=== PATIENT | female | born 1940 | race Caucasian/White ===

== ENCOUNTER 2022-10-29 14:31 | Inpatient (IN) ==
[2022-10-29] MEDS ORDERED: DOCUSATE SODIUM 100 MG CAPSULE PO PRN (14:46)
[2022-10-29] MEDS ORDERED: ONDANSETRON 4 MG/2 ML VIAL IV PRN (14:46)
[2022-10-29] MEDS: MIDODRINE 5 MG TABLET PO SCH ×2 (17:12→21:21)
[2022-10-29 17:13] LABS: Basophils % 0.1 % (0.0-0.8); Eosinophils % 0.2 % (0.00-10.9); Hematocrit 27.6 VOL% (35.7-47.0); Hemoglobin 8.4 GM/DL (12.0-16.0); Immature Granulocytes % 0.9 %; Immature Granulocytes Absolute 0.09 #; Lymphocytes # 2.2 10*3/uL (1.4-4.0); Lymphocytes % 21.8 % (21.3-54.2); Mean Corpuscular HGB Conc 30.4 GM/DL (32-36); Mean Corpuscular Volume 73.6 FL (87-102); Mean Platelet Volume 9.5 FL (9.6-12.0); Monocytes # 1.2 10*3/uL (0.11-0.8); Monocytes % 11.6 % (1.7-12.7); Neutrophils % 65.4 % (38.7-73.9); Platelet Count 731 T/CUMM (130-400); Red Blood Count 3.75 MC/CUMM (3.8-5.5); Red Cell Distribution Width 20.8 % (9.3-17.3)
[2022-10-29 17:38] LABS: Bilirubin,Total 0.5 MG/DL (0.20-1.00); Calcium 9.1 MG/DL (8.5-10.1); Osmolality,Calculated 254.4 MOS/KG (273-304); Potassium 4.6 MMOL/L (3.5-5.1); Thyroid Stimulating Hormone 2.35 uIU/ml (0.358-3.74)
[2022-10-29 18:52] LABS: Hypochromia Slight; Lymphocytes 22 % (20-55); Total Cells Counted 100
[2022-10-29 18:53] LABS: Microcytosis Slight
[2022-10-29 18:55] LABS: Ovalocytes Slight; Platelet Estimate Increased
[2022-10-29] MEDS: APIXABAN 2.5 MG TABLET PO SCH (21:21)
[2022-10-29] MEDS: SODIUM CHLORIDE 0.9% 1,000 ML IV SCH (21:21)
[2022-10-29] MEDS: ACETAMINOPHEN 325 MG TABLET PO PRN (21:21)
[2022-10-29 22:48] LABS: Bacteria,Urine Occasional /HPF (Few); Hyaline Casts,Urine 1 /LPF (0-3); Mucus,Urine Occasional /LPF (Occasional); RBC,Urine 2 /HPF (0-4); Squamous Epithelial Cell,Urine Occasional /HPF (0-10); Urine Appearance Clear (Clear); Urine Color Yellow (Yellow)
[2022-10-29 22:49] LABS: Bilirubin,Urine Negative (Negative); Blood, Urine Negative (Negative); Glucose,Urine (UA) Negative (Negative); Ketones,Urine Negative (Negative); Nitrite,Urine Negative (Negative); Protein,Urine Negative (Negative); Urine Urobilinogen 0.2 eU/dL (<2.0); Urine pH 5.5 (4.5-8.0)
[2022-10-30 05:09] LABS: Basophils % 0.4 % (0.0-0.8); Eosinophils % 0.4 % (0.00-10.9); Hematocrit 28.7 VOL% (35.7-47.0); Hemoglobin 8.5 GM/DL (12.0-16.0); Immature Granulocytes % 0.7 %; Immature Granulocytes Absolute 0.05 #; Lymphocytes # 1.9 10*3/uL (1.4-4.0); Lymphocytes % 27.4 % (21.3-54.2); Mean Corpuscular HGB Conc 29.6 GM/DL (32-36); Mean Platelet Volume 9.3 FL (9.6-12.0); Monocytes # 0.9 10*3/uL (0.11-0.8); Monocytes % 13.2 % (1.7-12.7); Neutrophils % 57.9 % (38.7-73.9); Platelet Count 705 T/CUMM (130-400); Red Blood Count 3.88 MC/CUMM (3.8-5.5); Red Cell Distribution Width 21.1 % (9.3-17.3); White Blood Count 6.82 T/CUMM (4-12)
[2022-10-30 05:28] LABS: Osmolality,Calculated 268.1 MOS/KG (273-304); Potassium 3.8 MMOL/L (3.5-5.1)
[2022-10-30] MEDS: ACETAMINOPHEN 325 MG TABLET PO PRN ×2 (06:40→16:15)
[2022-10-30] MEDS ORDERED: POTASSIUM CHLORIDE 20 MEQ TABLET PO ONE (08:42)
[2022-10-30] MEDS ORDERED: MAGNESIUM SULF RIDER 2 GM/50 ML PREMIX IV ONE (08:42)
[2022-10-30] MEDS ORDERED: ASPIRIN EC 81 MG TABLET PO SCH (09:00)
[2022-10-30] MEDS ORDERED: CLOPIDOGREL 75 MG TABLET PO SCH (09:00)
[2022-10-30] MEDS: PANTOPRAZOLE 40 MG TABLET PO SCH (10:25)
[2022-10-30] MEDS: APIXABAN 2.5 MG TABLET PO SCH (10:26)
[2022-10-30] MEDS: MIDODRINE 5 MG TABLET PO SCH ×4 (10:26→21:07)
[2022-10-30] MEDS: LEVOFLOXACIN 750 MG TABLET PO SCH (10:36)
[2022-10-30] MEDS: SODIUM CHLORIDE 0.9% 1,000 ML IV SCH ×3 (11:27→21:07)
[2022-10-30] MEDS: VALBENAZINE 80 MG PO SCH (11:27)
[2022-10-30] MEDS: ASCORBIC ACID 500 MG TABLET PO SCH ×2 (11:56→20:05)
[2022-10-30] MEDS: ATORVASTATIN 80 MG TABLET PO SCH (20:05)
[2022-10-30] MEDS: BUDESONIDE/FORMOTEROL 160-4.5 INHALER 6 GM INH SCH (20:05)
[2022-10-31] MEDS: SODIUM CHLORIDE 0.9% 1,000 ML IV SCH (05:02)
[2022-10-31 05:05] LABS: Basophils % 0.4 % (0.0-0.8); Eosinophils % 0.3 % (0.00-10.9); Hematocrit 29.7 VOL% (35.7-47.0); Hemoglobin 8.9 GM/DL (12.0-16.0); Immature Granulocytes % 0.4 %; Immature Granulocytes Absolute 0.03 #; Lymphocytes # 1.6 10*3/uL (1.4-4.0); Lymphocytes % 22.6 % (21.3-54.2); Mean Platelet Volume 9.2 FL (9.6-12.0); Monocytes # 0.9 10*3/uL (0.11-0.8); Monocytes % 12.9 % (1.7-12.7); Neutrophils % 63.4 % (38.7-73.9); Platelet Count 695 T/CUMM (130-400); Red Blood Count 3.91 MC/CUMM (3.8-5.5); Red Cell Distribution Width 21.1 % (9.3-17.3); White Blood Count 7.08 T/CUMM (4-12)
[2022-10-31 05:25] LABS: Calcium 8.7 MG/DL (8.5-10.1); Osmolality,Calculated 274.5 MOS/KG (273-304); Potassium 3.9 MMOL/L (3.5-5.1)
[2022-10-31 09:22] LABS: % Iron Saturation 6.3 % (18-50)
[2022-10-31 09:34] LABS: 25 Hydroxy Vitamin D Total 28.7 NG/ML (30-100); Folate 20.13 NG/ML (5.38-24.0)
[2022-10-31] MEDS: ASPIRIN EC 325 MG TABLET PO SCH (10:14)
[2022-10-31] MEDS: LEVOFLOXACIN 750 MG TABLET PO SCH (10:14)
[2022-10-31] MEDS: MIDODRINE 5 MG TABLET PO SCH ×3 (10:14→22:30)
[2022-10-31] MEDS: CALCIUM (CARBONATE)/VITAMIN D 600 MG-400 UNIT TABLET PO SCH (10:14)
[2022-10-31] MEDS: ASCORBIC ACID 500 MG TABLET PO SCH ×2 (10:14→22:30)
[2022-10-31] MEDS: FLUTICASONE 50 MCG NASAL SPRAY 16 GM BOTTLE BOTH NARES SCH (10:16)
[2022-10-31] MEDS: BUDESONIDE/FORMOTEROL 160-4.5 INHALER 6 GM INH SCH ×2 (10:16→22:31)
[2022-10-31] MEDS: PANTOPRAZOLE 40 MG TABLET PO SCH (10:16)
[2022-10-31] MEDS: VALBENAZINE 80 MG PO SCH (10:17)
[2022-10-31] MEDS: ATORVASTATIN 80 MG TABLET PO SCH (22:30)
[2022-10-31] MEDS: FERROUS SULFATE 325 MG TABLET PO SCH (22:30)
[2022-11-01 04:21] LABS: Basophils % 0.4 % (0.0-0.8); Eosinophils % 0.3 % (0.00-10.9); Hematocrit 30.5 VOL% (35.7-47.0); Immature Granulocytes % 0.4 %; Immature Granulocytes Absolute 0.03 #; Lymphocytes # 2.3 10*3/uL (1.4-4.0); Lymphocytes % 29.4 % (21.3-54.2); Mean Corpuscular HGB Conc 29.5 GM/DL (32-36); Mean Corpuscular Volume 75.9 FL (87-102); Mean Platelet Volume 9.3 FL (9.6-12.0); Monocytes # 0.8 10*3/uL (0.11-0.8); Monocytes % 10.7 % (1.7-12.7); Neutrophils % 58.8 % (38.7-73.9); Platelet Count 787 T/CUMM (130-400); Red Blood Count 4.02 MC/CUMM (3.8-5.5); Red Cell Distribution Width 21.1 % (9.3-17.3); White Blood Count 7.73 T/CUMM (4-12)
[2022-11-01 04:39] LABS: Potassium 3.8 MMOL/L (3.5-5.1)
[2022-11-01] MEDS: LEVOFLOXACIN 750 MG TABLET PO SCH (09:15)
[2022-11-01] MEDS: CALCIUM (CARBONATE)/VITAMIN D 600 MG-400 UNIT TABLET PO SCH (09:16)
[2022-11-01] MEDS: MIDODRINE 5 MG TABLET PO SCH ×2 (09:16→16:46)
[2022-11-01] MEDS: PANTOPRAZOLE 40 MG TABLET PO SCH (09:16)
[2022-11-01] MEDS: FERROUS SULFATE 325 MG TABLET PO SCH ×2 (09:16→22:23)
[2022-11-01] MEDS: ASPIRIN EC 325 MG TABLET PO SCH (09:16)
[2022-11-01] MEDS: ASCORBIC ACID 500 MG TABLET PO SCH ×2 (09:16→22:23)
[2022-11-01] MEDS: VALBENAZINE 80 MG PO SCH (09:17)
[2022-11-01] MEDS: BUDESONIDE/FORMOTEROL 160-4.5 INHALER 6 GM INH SCH ×2 (09:19→22:26)
[2022-11-01] MEDS: FLUTICASONE 50 MCG NASAL SPRAY 16 GM BOTTLE BOTH NARES SCH (09:20)
[2022-11-01] MEDS ORDERED: DILTIAZEM 50 MG/10 ML VIAL IV STA (12:01)
[2022-11-01] MEDS: METOPROLOL TARTRATE 5 MG/5 ML VIAL IV SCH ×3 (12:17→14:23)
[2022-11-01] MEDS: ACETAMINOPHEN 325 MG TABLET PO PRN (12:28)
[2022-11-01] MEDS ORDERED: DIGOXIN 0.5 MG/2 ML AMP IV ONE (12:45)
[2022-11-01] MEDS ORDERED: ENOXAPARIN 60 MG/0.6 ML SYRINGE SUBCUT ONE (13:00)
[2022-11-01] MEDS ORDERED: AMIODARONE INJ 450 MG in DEXTROSE 5% 241 ML IV SCH (13:00)
[2022-11-01] MEDS ORDERED: SODIUM CHLORIDE 0.9% 500 ML IV ONE (14:55)
[2022-11-01] MEDS ORDERED: MIDODRINE 5 MG TABLET PO SCH (21:00)
[2022-11-01] MEDS: AMIODARONE INJ 450 MG in DEXTROSE 5% 241 ML IV SCH (22:21)
[2022-11-01] MEDS: ATORVASTATIN 80 MG TABLET PO SCH (22:23)
[2022-11-01] MEDS: METOPROLOL TARTRATE 25 MG TABLET PO SCH (22:25)
[2022-11-02 04:01] LABS: Basophils % 0.3 % (0.0-0.8); Eosinophils % 0.6 % (0.00-10.9); Hematocrit 27.5 VOL% (35.7-47.0); Hemoglobin 8.1 GM/DL (12.0-16.0); Immature Granulocytes % 0.3 %; Immature Granulocytes Absolute 0.02 #; Lymphocytes % 30.2 % (21.3-54.2); Mean Corpuscular HGB Conc 29.5 GM/DL (32-36); Mean Corpuscular Volume 75.8 FL (87-102); Mean Platelet Volume 9.2 FL (9.6-12.0); Monocytes # 0.8 10*3/uL (0.11-0.8); Monocytes % 11.6 % (1.7-12.7); Platelet Count 749 T/CUMM (130-400); Red Blood Count 3.63 MC/CUMM (3.8-5.5); Red Cell Distribution Width 21.1 % (9.3-17.3); White Blood Count 6.65 T/CUMM (4-12)
[2022-11-02 04:29] LABS: Calcium 8.7 MG/DL (8.5-10.1); Osmolality,Calculated 274.5 MOS/KG (273-304); Potassium 3.7 MMOL/L (3.5-5.1)
[2022-11-02] MEDS: ASPIRIN EC 325 MG TABLET PO SCH (09:39)
[2022-11-02] MEDS: ASCORBIC ACID 500 MG TABLET PO SCH ×2 (09:40→21:44)
[2022-11-02] MEDS: CHOLECALCIFEROL 1,000 UNIT TABLET PO SCH (09:41)
[2022-11-02] MEDS: PANTOPRAZOLE 40 MG TABLET PO SCH (09:41)
[2022-11-02] MEDS: LEVOFLOXACIN 750 MG TABLET PO SCH (09:41)
[2022-11-02] MEDS: BUDESONIDE/FORMOTEROL 160-4.5 INHALER 6 GM INH SCH ×2 (09:42→21:45)
[2022-11-02] MEDS: METOPROLOL TARTRATE 25 MG TABLET PO SCH ×2 (09:42→21:44)
[2022-11-02] MEDS: FLUTICASONE 50 MCG NASAL SPRAY 16 GM BOTTLE BOTH NARES SCH (09:42)
[2022-11-02] MEDS: CALCIUM (CARBONATE)/VITAMIN D 600 MG-400 UNIT TABLET PO SCH (09:42)
[2022-11-02] MEDS: VALBENAZINE 80 MG PO SCH (09:43)
[2022-11-02] MEDS: FERROUS SULFATE 325 MG TABLET PO SCH ×2 (09:44→21:44)
[2022-11-02] MEDS: MIDODRINE 5 MG TABLET PO SCH ×3 (09:45→14:13)
[2022-11-02] MEDS ORDERED: POTASSIUM CHLORIDE 20 MEQ TABLET PO ONE (10:03)
[2022-11-02] MEDS: AMIODARONE INJ 450 MG in DEXTROSE 5% 241 ML IV SCH ×2 (11:16→17:10)
[2022-11-02] MEDS: ATORVASTATIN 80 MG TABLET PO SCH (21:44)
[2022-11-03] MEDS: AMIODARONE INJ 450 MG in DEXTROSE 5% 241 ML IV SCH (01:49)
[2022-11-03 05:01] LABS: Basophils % 0.5 % (0.0-0.8); Eosinophils % 0.7 % (0.00-10.9); Hematocrit 30.6 VOL% (35.7-47.0); Immature Granulocytes % 0.3 %; Immature Granulocytes Absolute 0.02 #; Lymphocytes # 1.8 10*3/uL (1.4-4.0); Lymphocytes % 30.6 % (21.3-54.2); Mean Corpuscular HGB Conc 29.4 GM/DL (32-36); Mean Corpuscular Volume 77.1 FL (87-102); Mean Platelet Volume 9.1 FL (9.6-12.0); Monocytes # 0.7 10*3/uL (0.11-0.8); Monocytes % 11.3 % (1.7-12.7); Neutrophils % 56.6 % (38.7-73.9); Platelet Count 773 T/CUMM (130-400); Red Blood Count 3.97 MC/CUMM (3.8-5.5); Red Cell Distribution Width 21.2 % (9.3-17.3); White Blood Count 5.76 T/CUMM (4-12)
[2022-11-03 05:19] LABS: Calcium 9.2 MG/DL (8.5-10.1); Osmolality,Calculated 275.4 MOS/KG (273-304); Potassium 3.6 MMOL/L (3.5-5.1)
[2022-11-03] MEDS ORDERED: AMIODARONE 200 MG TABLET PO SCH (09:00)
[2022-11-03] MEDS: ASPIRIN EC 325 MG TABLET PO SCH (10:11)
[2022-11-03] MEDS: METOPROLOL TARTRATE 25 MG TABLET PO SCH (10:11)
[2022-11-03] MEDS: ASCORBIC ACID 500 MG TABLET PO SCH ×2 (10:11→20:56)
[2022-11-03] MEDS: PANTOPRAZOLE 40 MG TABLET PO SCH (10:12)
[2022-11-03] MEDS: FERROUS SULFATE 325 MG TABLET PO SCH ×2 (10:12→20:56)
[2022-11-03] MEDS: CHOLECALCIFEROL 1,000 UNIT TABLET PO SCH (10:12)
[2022-11-03] MEDS: CALCIUM (CARBONATE)/VITAMIN D 600 MG-400 UNIT TABLET PO SCH (10:12)
[2022-11-03] MEDS: MIDODRINE 5 MG TABLET PO SCH ×3 (10:12→20:57)
[2022-11-03] MEDS: AMIODARONE 200 MG TABLET PO SCH ×2 (10:12→20:56)
[2022-11-03] MEDS: FLUTICASONE 50 MCG NASAL SPRAY 16 GM BOTTLE BOTH NARES SCH (10:15)
[2022-11-03] MEDS: BUDESONIDE/FORMOTEROL 160-4.5 INHALER 6 GM INH SCH ×2 (10:15→20:57)
[2022-11-03] MEDS ORDERED: FUROSEMIDE 40 MG/4 ML VIAL IV ONE (10:29)
[2022-11-03] MEDS: LEVOFLOXACIN 750 MG TABLET PO SCH (10:31)
[2022-11-03] MEDS: VALBENAZINE 80 MG PO SCH (10:35)
[2022-11-03] MEDS: ATORVASTATIN 80 MG TABLET PO SCH (20:56)
[2022-11-04 04:46] LABS: Basophils % 0.5 % (0.0-0.8); Eosinophils # 0.1 10*3/uL (0.0-0.87); Eosinophils % 0.9 % (0.00-10.9); Hematocrit 32.8 VOL% (35.7-47.0); Hemoglobin 9.8 GM/DL (12.0-16.0); Immature Granulocytes % 0.2 %; Immature Granulocytes Absolute 0.01 #; Lymphocytes # 1.8 10*3/uL (1.4-4.0); Lymphocytes % 28.1 % (21.3-54.2); Mean Corpuscular HGB Conc 29.9 GM/DL (32-36); Mean Corpuscular Volume 75.9 FL (87-102); Mean Platelet Volume 9.3 FL (9.6-12.0); Monocytes # 0.7 10*3/uL (0.11-0.8); Monocytes % 10.6 % (1.7-12.7); Neutrophils % 59.7 % (38.7-73.9); Platelet Count 818 T/CUMM (130-400); Red Blood Count 4.32 MC/CUMM (3.8-5.5); Red Cell Distribution Width 21.5 % (9.3-17.3); White Blood Count 6.33 T/CUMM (4-12)
[2022-11-04 05:03] LABS: Calcium 9.6 MG/DL (8.5-10.1); Osmolality,Calculated 276.4 MOS/KG (273-304); Potassium 3.3 MMOL/L (3.5-5.1)
[2022-11-04] MEDS: ASPIRIN EC 325 MG TABLET PO SCH (08:55)
[2022-11-04] MEDS: FERROUS SULFATE 325 MG TABLET PO SCH ×2 (08:55→20:25)
[2022-11-04] MEDS: CALCIUM (CARBONATE)/VITAMIN D 600 MG-400 UNIT TABLET PO SCH (08:55)
[2022-11-04] MEDS: ASCORBIC ACID 500 MG TABLET PO SCH ×2 (08:55→20:25)
[2022-11-04] MEDS: PANTOPRAZOLE 40 MG TABLET PO SCH (08:56)
[2022-11-04] MEDS: MIDODRINE 5 MG TABLET PO SCH ×3 (08:56→20:25)
[2022-11-04] MEDS: AMIODARONE 200 MG TABLET PO SCH ×2 (08:56→20:24)
[2022-11-04] MEDS: CHOLECALCIFEROL 1,000 UNIT TABLET PO SCH (08:56)
[2022-11-04] MEDS: BUDESONIDE/FORMOTEROL 160-4.5 INHALER 6 GM INH SCH ×2 (08:57→20:25)
[2022-11-04] MEDS: VALBENAZINE 80 MG PO SCH (08:58)
[2022-11-04] MEDS: FLUTICASONE 50 MCG NASAL SPRAY 16 GM BOTTLE BOTH NARES SCH (08:58)
[2022-11-04] MEDS ORDERED: FUROSEMIDE 40 MG/4 ML VIAL IV ONE (10:00)
[2022-11-04] MEDS ORDERED: TUBERCULIN SKIN TEST 0.1 ML SYRINGE INTRADERM ONE (11:00)
[2022-11-04] MEDS: ATORVASTATIN 80 MG TABLET PO SCH (20:25)
[2022-11-05 04:50] LABS: Basophils % 0.3 % (0.0-0.8); Eosinophils # 0.1 10*3/uL (0.0-0.87); Eosinophils % 1.2 % (0.00-10.9); Hematocrit 32.5 VOL% (35.7-47.0); Hemoglobin 9.7 GM/DL (12.0-16.0); Immature Granulocytes % 0.3 %; Immature Granulocytes Absolute 0.02 #; Lymphocytes % 30.2 % (21.3-54.2); Mean Corpuscular HGB Conc 29.8 GM/DL (32-36); Mean Corpuscular Volume 76.1 FL (87-102); Mean Platelet Volume 9.2 FL (9.6-12.0); Monocytes # 0.9 10*3/uL (0.11-0.8); Monocytes % 13.7 % (1.7-12.7); Neutrophils % 54.3 % (38.7-73.9); Platelet Count 791 T/CUMM (130-400); Red Blood Count 4.27 MC/CUMM (3.8-5.5); Red Cell Distribution Width 22.3 % (9.3-17.3); White Blood Count 6.52 T/CUMM (4-12)
[2022-11-05 05:08] LABS: Calcium 9.6 MG/DL (8.5-10.1); Osmolality,Calculated 277.4 MOS/KG (273-304)
[2022-11-05] MEDS: ASPIRIN EC 325 MG TABLET PO SCH (08:34)
[2022-11-05] MEDS: CALCIUM (CARBONATE)/VITAMIN D 600 MG-400 UNIT TABLET PO SCH (08:34)
[2022-11-05] MEDS: ASCORBIC ACID 500 MG TABLET PO SCH ×2 (08:35→21:46)
[2022-11-05] MEDS: PANTOPRAZOLE 40 MG TABLET PO SCH (08:35)
[2022-11-05] MEDS: FERROUS SULFATE 325 MG TABLET PO SCH ×2 (08:35→21:46)
[2022-11-05] MEDS: VALBENAZINE 80 MG PO SCH (08:36)
[2022-11-05] MEDS: AMIODARONE 200 MG TABLET PO SCH ×2 (08:36→21:46)
[2022-11-05] MEDS: CHOLECALCIFEROL 1,000 UNIT TABLET PO SCH (08:37)
[2022-11-05] MEDS: FLUTICASONE 50 MCG NASAL SPRAY 16 GM BOTTLE BOTH NARES SCH (08:38)
[2022-11-05] MEDS: BUDESONIDE/FORMOTEROL 160-4.5 INHALER 6 GM INH SCH ×2 (08:38→21:47)
[2022-11-05] MEDS: MIDODRINE 5 MG TABLET PO SCH ×3 (09:06→21:46)
[2022-11-05] MEDS: ATORVASTATIN 80 MG TABLET PO SCH (21:46)
[2022-11-06 04:25] LABS: Basophils % 0.5 % (0.0-0.8); Eosinophils # 0.1 10*3/uL (0.0-0.87); Eosinophils % 1.4 % (0.00-10.9); Hematocrit 30.2 VOL% (35.7-47.0); Hemoglobin 9.2 GM/DL (12.0-16.0); Immature Granulocytes % 0.3 %; Immature Granulocytes Absolute 0.02 #; Lymphocytes # 1.9 10*3/uL (1.4-4.0); Lymphocytes % 28.3 % (21.3-54.2); Mean Corpuscular HGB Conc 30.5 GM/DL (32-36); Mean Corpuscular Volume 76.6 FL (87-102); Mean Platelet Volume 8.9 FL (9.6-12.0); Monocytes # 0.7 10*3/uL (0.11-0.8); Monocytes % 10.3 % (1.7-12.7); Neutrophils % 59.2 % (38.7-73.9); Platelet Count 682 T/CUMM (130-400); Red Blood Count 3.94 MC/CUMM (3.8-5.5); Red Cell Distribution Width 22.2 % (9.3-17.3)
[2022-11-06 04:47] LABS: Calcium 9.3 MG/DL (8.5-10.1); Osmolality,Calculated 279.3 MOS/KG (273-304); Potassium 3.1 MMOL/L (3.5-5.1)
[2022-11-06 05:13] LABS: Platelet Estimate Increased
[2022-11-06] MEDS ORDERED: POTASSIUM CHLORIDE 20 MEQ TABLET PO ONE (07:35)
[2022-11-06 09:37] VITALS: BP 146/69
[2022-11-06] MEDS: CALCIUM (CARBONATE)/VITAMIN D 600 MG-400 UNIT TABLET PO SCH (10:01)
[2022-11-06] MEDS: FERROUS SULFATE 325 MG TABLET PO SCH (10:02)
[2022-11-06] MEDS: ASCORBIC ACID 500 MG TABLET PO SCH (10:02)
[2022-11-06] MEDS: AMIODARONE 200 MG TABLET PO SCH (10:02)
[2022-11-06] MEDS: CHOLECALCIFEROL 1,000 UNIT TABLET PO SCH (10:02)
[2022-11-06] MEDS: ASPIRIN EC 325 MG TABLET PO SCH (10:03)
[2022-11-06] MEDS: MIDODRINE 5 MG TABLET PO SCH (10:03)
[2022-11-06] MEDS: PANTOPRAZOLE 40 MG TABLET PO SCH (10:03)
[2022-11-06] MEDS: FLUTICASONE 50 MCG NASAL SPRAY 16 GM BOTTLE BOTH NARES SCH (10:04)
[2022-11-06] MEDS: BUDESONIDE/FORMOTEROL 160-4.5 INHALER 6 GM INH SCH (10:05)
== END 2022-11-06 11:34 | DRG 312 ==
LOC: N.TELES → OBSVTOIN 16:30 → SUATTDRO 16:30
PROVIDERS: ADMIT Internal Medicine; ATTEND Family Medicine